=== PATIENT | male | born 1995 | race African-American/Black ===

== ENCOUNTER 2022-02-02 19:22 | Emergency (ER) | payer SELFPAY ==
[~2022-02-02] VITALS: Ht 188 cm; Wt 68.0 kg
--- NOTE | 2022-02-02 20:30 | NUR ---
BIBSELF C/O SORE THROAT X3 DAYS +HEADACHE. 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 PATIENT ALERT AND ORIENTED X3. AMBULATORY WITH NON LABORED BREATHING PLACED IN BED 14 ON MONITOR AWAITING MD BROOKE.
[2022-02-02] MEDS ORDERED: DEXAMETHASONE SOD PHOSPHATE 10 MG/ML VIAL ONE (20:49)
[2022-02-02] MEDS ORDERED: PENICILLIN G BENZATHINE 2.4 MMU/4 ML ML IM ONE ×2 (20:49→21:00)
[2022-02-02] MEDS ORDERED: KETOROLAC TROMETHAMINE 15 MG/ML VIAL ONE (20:49)
[2022-02-02] MEDS ORDERED: IV NS 0.9% 1,000 ML BAG IV ONE (21:00)
[2022-02-02] MEDS ORDERED: DEXAMETHASONE SOD PHOSPHATE 10 MG/ML VIAL IV ONE (21:00)
[2022-02-02] MEDS ORDERED: KETOROLAC TROMETHAMINE INJ 30 MG/ML VIAL IV ONE (21:00)
--- NOTE | 2022-02-02 21:49 | NUR ---
RAPID STREP DONE AND SENT TO LAB
[2022-02-02 23:09] VITALS: BP 140/70
--- NOTE | 2022-02-02 23:27 | NUR ---
Patient discharged to home in stable condition. Written and verbal after care instructions given. Patient verbalizes understanding of instruction.
== END 2022-02-02 23:29 | disposition home or self-care (01) ==
LOC: ER 19:25
DX: J36 Peritonsillar abscess (principal); R13.10 Dysphagia, unspecified; R50.9 Fever, unspecified; E86.0 Dehydration
CPT/HCPCS: 87070; 87880; 96361; 96372; 96374; 96375; 99284; J0558; J1100; J1885; J7030; 86403-TC

== ENCOUNTER 2022-02-04 12:59 | Emergency (ER) | payer MEDICAID ==
[~2022-02-04] VITALS: Ht 188 cm; Wt 63.5 kg
--- NOTE | 2022-02-04 12:59 | NUR ---
PT BIB SELF C/O SORE THROAT X 4 DAYS. SEEN HERE LAST TIME FOR SAME COMPLAINT. PT IS AAOX4, NOT IN RESPIRATORY DISTRESS, V/S STABLE, KEPT RESTED AND COMFORTABLE. WILL CONTINUE TO MONITOR.
--- NOTE | 2022-02-04 14:25 | NUR ---
SEEN AND EXAMINED BY .
[2022-02-04] MEDS ORDERED: PIPERACILLIN /TAZOBACTAM 3.375 G in IV D5W 50 ML IV ONE (14:30)
[2022-02-04] MEDS ORDERED: DEXAMETHASONE SOD PHOSPHATE 10 MG/ML VIAL IV ONE (14:30)
[2022-02-04] MEDS ORDERED: LIDOCAINE 2%-EPI 1:100,000 30 ML VIAL ONE (14:33)
[2022-02-04] MEDS ORDERED: DEXAMETHASONE SOD PHOSPHATE 10 MG/ML VIAL ONE (15:14)
--- NOTE | 2022-02-04 15:20 | NUR ---
IV LINE ESTABLISHED BLOOD DRAWN AND SENT TO LAB.
--- NOTE | 2022-02-04 15:26 | NUR ---
PT IS WHEELED TO CT SCAN VIA WHEELCHAIR.
[2022-02-04] MEDS ORDERED: IV NS 0.9% 250 ML IV ONE (15:29)
[2022-02-04] MEDS ORDERED: IOHEXOL-300 100 ML VIAL IV ONE (15:29)
[2022-02-04] MEDS ORDERED: IV NS 0.9% 1,000 ML BAG IV ONE (16:30)
[2022-02-04 17:13] LABS: BASOPHILS % (AUTO) 0.1 % (0.0-2.0); HEMATOCRIT 41 % (39-51); HEMOGLOBIN 13.4 g/dL (13.5-17.5); LYMPHOCYTES # (AUTO) 1.3 K/uL (0.8-4.8); LYMPHOCYTES % (AUTO) 13.5 % (20.0-44.0); MEAN CORPUSCULAR HGB CONC 33 g/dl (31.0-36.0); MEAN CORPUSCULAR VOLUME 87 fL (80-96); MONOCYTES # (AUTO) 0.8 K/uL (0.1-1.30); NEUTROPHILS # (AUTO) 7.4 K/uL (1.8-8.9); NEUTROPHILS % (AUTO) 78.4 % (43.0-81.0); PLATELET COUNT (AUTO) 184 K/uL (150-450); RED BLOOD CELL COUNT(AUTO) 4.71 MIL/uL (4.5-6.0); WHITE BLOOD COUNT (AUTO) 9.5 K/uL (4.3-11.0)
[2022-02-04] MEDS ORDERED: ONDANSETRON HCL/PF 4 MG/2 ML VIAL ONE (17:37)
[2022-02-04 17:49] LABS: CALCIUM, SERUM 9.4 mg/dL (8.5-10.1); CREATININE 0.8 mg/dL (0.6-1.3); POTASSIUM 3.7 mmol/L (3.5-5.1)
[2022-02-04] MEDS ORDERED: AMOX-421 PO (18:37)
[2022-02-04 18:54] VITALS: BP 121/64
--- NOTE | 2022-02-04 18:54 | NUR ---
IV removed. Catheter intact and site benign. Pressure and 4x4 applied to site. No bleeding noted. Patient discharged to home in stable condition. Written and verbal after care instructions given. Patient verbalizes understanding of instruction.
== END 2022-02-04 19:00 | disposition home or self-care (01) ==
LOC: ER 13:08
DX: J36 Peritonsillar abscess (principal); E86.0 Dehydration; Z79.899 Other long term (current) drug therapy
CPT/HCPCS: 36415; 42700; 70491; 80048; 85025; 96361; 96365; 96375; 99285; J1100; J2405; J2543; J3490; J7030; J7050; J7060; Q9967

== ENCOUNTER 2023-07-09 15:28 | Emergency (ER) | payer MEDICAID ==
[~2023-07-09] VITALS: Ht 188 cm; Wt 65.8 kg
[~2023-07-09 15:28] MED LIST: AMOX-421 PO
[2023-07-09] MEDS ORDERED: CEPH500C2 PO (16:15)
[2023-07-09] MEDS ORDERED: CLOT15CR27 TP (16:16)
[2023-07-09 16:26] VITALS: BP 124/75; TEMP 98.1; O2SAT 99
== END 2023-07-09 16:31 | disposition home or self-care (01) ==
LOC: ER 15:36
DX: N48.9 Disorder of penis, unspecified (principal)